=== PATIENT | female | born 1995 | race Caucasian/White ===

== ENCOUNTER 2025-06-26 10:36 | Emergency (ER) | payer BC, SELFPAY ==
[2025-06-26 10:46] VITALS: BP 146/97
[2025-06-26 11:36] LABS: COVID-19 Antigen Negative (Negative)
[2025-06-26 11:39] VITALS: BMI 27.1
[2025-06-26 12:00] VITALS: BP 118/30
--- NOTE | 2025-06-26 12:42 | ED.GENMED ---
History of Present Illness
General
Chief Complaint: Cold/Flu/URI Symptoms
Time Seen by Provider: 06/26/25 12:00
History of Present Illness
History of Present Illness:
Jeanne is a 30-year-old female currently 11 weeks 4 days presents with several days of cough, congestion and fever and new onset of chest pain and shortness of breath yesterday. Reports that chest pain began yesterday after coughing.
Reports that it is worse with deep inspiration. Remittent shortness of breath. Patient reports that she has had shortness of breath her but this is slightly worse than usual. Ongoing nausea throughout but worse now and not
relieved by Unisom and B6.
Phy Exam
General Physical Exam
General Presentation: well appearing and no apparent distress
General Skin: warm and dry
General Habitus: normal
General Mental: alert
General Hydration: appears well hydrated
ENT Exam
ENT Exam: EOMI, pharynx normal, neck supple and normocephalic
Eye Exam
Eye Exam: PERRL, cornea clear and conjunctiva normal
Cardiovascular Exam
Cardiovascular Exam: regular rate/rhythm, no edema, no murmur and normal peripheral pulses
Pulmonary Exam
Pulmonary Exam: lungs clear, no respiratory distress, no crackles, no rhonchi, no stridor, no wheezing, no cough and decreased breath sounds
Cough: coarse cough
Breath Sounds: Other: left lower and right lower (Course)
Gastrointestinal Exam
Gastrointestinal Exam: normal bowel sounds, non tender, soft, no organomegaly, no pulsatile mass and non distended
Neurological Exam
Neurological Exam: alert, oriented x3, no motor deficits and speech normal
Musculoskeletal Exam
Musculoskeletal Exam: full ROM and no edema
Skin Exam
Skin Exam: normal color, warm/dry, no rash and no petechia
Psychiatric Exam
Psychiatric Exam: normal mood/affect
Course
Orders/Labs/Results
Orders:
Orders
06/26/25 10:56
COVID-19 Antigen Urgent
Source: Nasal Swab
Influenza A+B Rapid Molecular Urgent
MY Source: Nasal Swab
Specimen Description:
06/26/25 12:29
0.9% Sodium Chloride 500 ml [Nss] 500 ml IV BOLUS
Ipratropium/Albuterol Sulfate [Duoneb] 3 ml INH R NOW STA
06/26/25 12:43
Electrocardiogram (*1) Urgent
Reason for Study: Chest Pain
EKG- Treatment ONCE
06/26/25 13:04
Basic Metabolic Panel Urgent
Complete Blood Count/With Diff Urgent
Troponin I Urgent
06/26/25 13:39
CT Chest PE Study Urgent
Comment: . discussed risks.
Reason For Exam: chest pain, SOB, tachy
06/26/25 16:01
Acetaminophen [Tylenol] 650 mg PO NOW STA
Abnormal Lab Results
06/26/25
13:04
RBC 4.18 L 10^6/uL
(4.20-5.40)
Hct 35.8 L %
(37.0-47.0)
MPV 10.7 H fL
(7.4-10.4)
Absolute Lymphs (auto) 0.7 L 10^3/uL
(1.2-3.4)
Neutrophils % 83.4 H %
(42.2-75.2)
Lymphocytes % 8.6 L %
(20.5-51.1)
Sodium 130 L mmol/L
(135-145)
BUN 5 L mg/dl
(7-17)
06/26/25 13:04
06/26/25 13:04
Vital Signs
Initial and Last Documented VS:
Initial Vital Signs
Temp Pulse Resp BP Pulse Ox
36.9 C 123 16 146/97 98
06/26/25 10:46 12/13/25 10:46 06/26/25 10:46 06/26/25 10:46 06/26/25 10:46
Last Documented Vital Signs
Temp Pulse Resp BP Pulse Ox
36.9 C 118 18 131/78 100
06/26/25 10:46 06/26/25 15:45 06/26/25 15:45 06/26/25 15:19 06/26/25 15:45
MDM/Problems Addressed
Differential Diagnosis Includes:
Reports exposure to flu positive medical several days ago. COVID and flu in triage are negative. Course breath sounds to bilateral lower lobes.
Chest pain not reproducible to palpation. Reports worsening and with deep inspiration. Discussed possibility of PE given increased risk due to with patient. Risks/benefits of CT imaging discussed with patient. She requested to think
about it and call her OB for recommendations. After discussion with her OB patient elected to move forward with CT imaging of her chest which is negative for any pulmonary Malzone or pneumonia.
Given a albuterol neb treatment with some improvement in her shortness of breath. Take Tylenol for pain. Patient is slightly tachycardic to 110 around although reports very anxious and heart rates are seen on the monitor in the 90s while resting.
She was given a fluid bolus with improvement..
Discussed that this is likely a viral respiratory illness as her white blood cell count is normal and there is no infiltrate seen on CT. Supportive treatments discussed. She will follow-up this week with her OB and MFM. Return precautions
discussed in detail. Patient and in agreement with the plan comfortable with discharge
*Pulse Oximetry
SaO2: 100
Oxygen Mode of Delivery: Room air
Patient hypoxic: no
*Critical Care Note
Total Time (30-74mins, 75-104mins- exclusive of procedures): Not Applicable
ED Attending Note
-
Portions of this chart may have been created with voice recognition software.� Occasional wrong word or��sound alike� substitutions may have occurred due to the inherent limitations of voice recognition software.
Discharge Plan
Departure
Patient Disposition: Home (Routine Discharge)
Date of Disposition: 06/26/25
Time of Disposition: 16:04
Patient with high blood pressure during this ER visit?: No
Discharge Problem:
Viral respiratory illness, First trimester , Chest pain
Instructions: Viral Upper Respiratory Infection, Adult (DC), Viral Syndrome (DC)
Prescriptions:
New
albuterol sulfate [Ventolin HFA] 90 mcg/actuation HFA aerosol inhaler
2 puff inhalation QID PRN (Reason: shortness of breath or wheezing) Qty: 6.7 0RF
Activity Restrictions/Additional Instructions:
Please take Tylenol for pain or fevers. Pain experiencing is likely related to muscular pain from cough. You may take Mucinex for your cough and an albuterol inhaler has been sent to your pharmacy for shortness of breath.
Interventions
Interventions:
*Risk Screen - Suicide Last Done: 06/26/25 10:46
*General Assessment Last Done: 06/26/25 10:46
*Neglect/Abuse Screening Last Done: 06/26/25 10:46
*ED COVID-19 Vaccine History Last Done: 06/26/25 11:40
*ED Influenza Vaccine History Last Done: 06/26/25 11:40
[facility] Fall Risk Assessment Tool Last Done: 06/26/25 11:39
ED- Pulmonary Assessment Last Done: 06/26/25 11:41
Discharge Date and Time
Print Language: SAMI
[2025-06-26] MEDS: NSS 500 IV (12:45)
[2025-06-26] MEDS: DUONEB 3 ML INH (12:45)
[2025-06-26 13:10] LABS: Hematocrit 35.8 % (37.0-47.0); Hemoglobin 12.6 g/dL (12.0-16.0); Mean Corp Hgb Conc. 35.2 g/dL (33.0-37.0); Mean Corpuscular Volume 85.6 fL (81.0-99.0); Nucleated Red Blood Cells % 0 %; Platelet Count 178 10^3/uL (130-400); Red Cell Dist. Width 12.5 % (11.5-14.5)
[2025-06-26 13:25] LABS: Blood Urea Nitrogen 5 mg/dl (7-17); Calcium 9.4 mg/dl (8.4-10.2); Carbon Dioxide 24 mmol/L (22-30); Chloride 100 mmol/L (98-107); Estimated Creatinine Clearance > 125 ml/min; Glucose 89 mg/dl (70-99); Potassium 4.2 mmol/L (3.5-5.1); Sodium 130 mmol/L (135-145); eGFR > 60.00
[2025-06-26 13:36] LABS: Troponin I < 0.012 ng/ml
[2025-06-26 14:00] VITALS: BP 115/70
[2025-06-26 15:19] VITALS: BP 131/78
[2025-06-26] MEDS: TYLENOL 650 MG PO (16:15)
== END 2025-06-26 16:24 | disposition home or self-care (01) ==
LOC: EMR 10:36
PROVIDERS: Surgery Trauma Surgery; EMERGENCY PHYSICIAN Emergency Medicine
DX: O98.511 Other viral diseases complicating pregnancy, first trimester (principal); Z3A.11 11 weeks gestation of pregnancy
CPT/HCPCS: 99284; 96360; 94640; 71275; 80048; 84484; 85025; 87502; 87811; 93005; Q9967